=== PATIENT | female | born 1980 | race Two or more races ===

== ENCOUNTER → 2020-05-21 15:00 | Outpatient (CLI) | payer OTHER, SELFPAY ==
--- NOTE | ~2020-05-21 | MM_ITS ---
EXAMINATION: MM screening [facility] BI w kasi HISTORY: Screening mammogram TECHNIQUE: Craniocaudal and mediolateral oblique 3-D tomosynthesis images were obtained and synthetic 2-D images were generated. CAD analysis was submitted and interpreted. COMPARISON: 04/30/2019, 05/17/2017, 03/06/2015 BREAST PARENCHYMAL COMPOSITION: There are scattered areas of fibroglandular density. FINDINGS: RIGHT BREAST: There is a possible mass in the posterior third outer breast best appreciated 10 cm fro m the nipple on the craniocaudal view. LEFT BREAST: There is no evidence of suspicious mass, calcification, or architectural distortion to s uggest malignancy. There has been no significant interval change. IMPRESSION: 1. Possible right breast mass 2. Additional mammographic views and possible breast ultrasound are recommended. BI-RADS Category 0: Incomplete: Needs additional imaging evaluation. Reviewed, dictated and finalized at location A. ENT PLANT OPERATOR IMPRESSION: 1. Possible right breast mass 2. Additional mammographic views and possible breast ultrasound are recommended . BI-RADS Category 0: Incomplete: Needs additional imaging evaluation.
== END ==
PROVIDERS: PCP Family Medicine Sports Medicine; Visit Provider Nurse Practitioner
DX: Z12.31 Encounter for screening mammogram for malignant neoplasm of breast (principal); R92.8 Other abnormal and inconclusive findings on diagnostic imaging of breast
CPT/HCPCS: 77063; 77067

== ENCOUNTER → 2020-06-03 09:48 | Outpatient (CLI) | payer OTHER, SELFPAY ==
--- NOTE | ~2020-06-03 | MMUS_ITS ---
EXAMINATION: MM diagnostic mammo unilat RT, US breast RT limited HISTORY: Follow-up right breast asymmetry TECHNIQUE: Additional 3-D tomosynthesis images of the right breast were performed and synthetic 2-D i mages were generated. CAD analysis was submitted and interpreted. High resolution Limited right breas t ultrasound was performed. COMPARISON: Comparison to multiple prior studies sequentially, with oldest reviewed study dated 07/18. BREAST PARENCHYMAL COMPOSITION: Breast composed of scattered areas of fibroglandular density. FINDINGS: MAMMOGRAPHIC FINDINGS: There is persistent focal asymmetry in the upper outer quadrant of the right breast. There are no augie picious calcifications or architectural distortion. ULTRASOUND: Limited right breast ultrasound: At 11:00, 9 cm from the nipple there is a complex predominantly hypo echoic mass measuring 1.3 x 1.1 x 0.4 cm. There is mixed posterior attenuation. No internal vasculari ty. This corresponds to the area of abnormality on mammography. IMPRESSION: 1. Complex hypoechoic 1.3 cm right breast mass at 11:00, 9 cm from the nipple. 2. Ultrasound-guided right breast biopsy recommended. BI-RADS category 4, suspicious findings. Reviewed, dictated and finalized at location A. MAKER IMPRESSION: 1. Complex hypoechoic 1.3 cm right breast mass at 11:00, 9 cm from the nipple. 2. Ultrasound-guided right breast biopsy recommended. BI-RADS category 4, suspicious findings.
== END ==
PROVIDERS: PCP Family Medicine Sports Medicine; Visit Provider Obstetrics & Gynecology Gynecology
DX: R92.8 Other abnormal and inconclusive findings on diagnostic imaging of breast (principal)
CPT/HCPCS: 76642; 77065

== ENCOUNTER 2024-07-16 00:29 | Day surgery (SDC) | payer OTHER, SELFPAY ==
[2024-07-02 13:23] VITALS: BMI 28.0
--- OUTSIDE RECORDS SUMMARY | 2024-07-16 00:31 | XMS_ITS | Clinical Summary ---
Author Organization [facility] Address [address] [place] [address] Care Team Providers Care Grey Percher Name Role Phone Poonam Carrillo MD Unavailable [phone] Macario Lehman MD Primary Care Provider [phone] Allergies No known active allergies Medications ergocalciferol (DRISDOL) 8,000 unit/mL drops Take 1 tablet by mouth once a week Active cholecalciferol (VITAMIN D-3) 2000 unit tablet Take 2,000 Units by mouth daily Active ibuprofen (ADVIL,MOTRIN) 600 mg tablet Take 600 mg by mouth every 6 (six) hours as needed 05/27/2011 Active Tri-Sprintec, 28, 0.18/0.215/0.25 mg-35 mcg (28) per tablet Take 1 tablet by mouth daily 06/04/2020 Active Active Problems Problem Noted Date Diagnosed Date Mass of breast 07/20/2016 Family History Medical History Relation Name Comments Melanoma Father's Brother Relation Name Status Comments Father Other Tumore left kid marina, tumor on colon, age 55 Father's Brother Social History Tobacco Use Types Packs/Day Years Used Date Smoking Tobacco: Former Alcohol Use Standard Drinks/Week Comments Yes 0 (1 standard drink = 0.6 oz pur e alcohol) Personal Safety Answer Date Recorded Getting School Help Needed Not on file 07/21 Comments Unknown Sex and Gender Information Value Date Recorded Sex Assigned at Not on file Legal Sex Female 8:55 AM SUPERVISOR WORD PROCESSING Gender Identity Not on file Sexual Orientation Not on file Obstetrics History Para Term AB IAB SAB Ectopic Multiple Livin g Live Births 1 1 1 1 1 Date Outcome GA Total Labor Labor/2nd/3rd Weight Sex Type Anes PTL Katiana A1 A5 Name Clin 011 36w 6d 15h 30m/2h 30m/ 2.95 kg (6 lb 8.1 oz) M Vag-S pont Epidur al Y Livin g 7 8 KINSEY MONDRAGON1A KETTY Delivery Location:[facility] Last Filed Vital Signs Vital Sign Reading Time Taken Comments Blood Pressure - - Pulse - - Temperature - - Respiratory Rate - - Oxygen Saturation - - Inhaled Oxygen Concentration - - Weight 65.8 kg (145 lb) 06/24/2020 1:54 PM SUPERVISOR WORD PROCESSING Height 152.4 cm (5') 06/24/2020 1:54 PM SUPERVISOR WORD PROCESSING Body Mass Index 28.32 06/24/2020 1:54 PM SUPERVISOR WORD PROCESSING Plan of Treatment Health Maintenance Due Date Last Done Comments Cervical Cancer Screening 1979 Colon Cancer Screening-Colonoscopy 1979 Depression Screening 1979 Hepatitis C Screening 1979 DTaP/Tdap/Td Vaccine (1 - Tdap) 1990 Hepatitis B Screening 1997 Regular Well Visit/Exam 18-64 1997 Influenza Vaccine (#1) 2024 04/15/2020 Breast Cancer Screening-Mammogram 08/20/2024 08/21/2023, 08/12/2022, 06/02/2021 HPV Vaccines Aged Out No longer eligi ble based on patient's age to complete this topic Pneumococcal vaccine <65 Aged Out No longer eligible based on patient's age to complete this topic Procedures Procedure Name Priority Date/Time Associated Diagnosis Comments SCREENING MAMMOGRAM BILATERAL W MAXIMILIAN Schedule Routine, Read Routine (OP Routine) 08/21/2023 3:57 PM CDT Screening mammogram, encounter for from Last 3 Months or Most Recently Relevant to Health Maintenance Results * Screening Mammogram Bilateral W Maximilian (08/21/2023 3:57 PM CDT) Anatomical Region Laterality Modality Breast Bilateral Mammography Narrative 08/22/2023 10:49 AM CDT Mammogram Technique: Bilateral Digital Breast Tomosynthesis, Bilateral C-view 2D Screening mammogram. Views obtained: bilateral craniocaudal and bilateral mediolateral oblique. Computer Aided Detection was performed. Mammogram Findings: The present examination has been compared to prior imaging studies performed at [facility] on 06/02/2021 and 08/12/2022, and at [facility] on 05/21/2020. There are scattered areas of fibroglandular density. There is no suspicious abnormality in either breast. Impression: There is no mammographic evidence of malignancy. Annual screening mammography is recommended. OVERALL FINAL ASSESSMENT: BI-RADS CATEGORY 1: Negative. Procedure Note Veronika Mckinney MD - 08/22/2023 Mammogram Technique: Bilateral Digital Breast Tomosynthesis, Bilateral C-view 2D Screening mammogram. Views obtained: bilateral craniocaudal and bilateral mediolateral oblique. Computer Aided Detection was performed. Mammogram Findings: The present examination has been compared to prior imaging studies performed at [facility] on 06/02/2021 and 08/12/2022, and at [facility] on 05/21/2020. There are scattered areas of fibroglandular density. There is no suspicious abnormality in either breast. Impression: There is no mammographic evidence of malignancy. Annual screening mammography is recommended. OVERALL FINAL ASSESSMENT: BI-RADS CATEGORY 1: Negative. us Self Screening Mammogram IMG MAMMO PROCEDURES Fi nal Result from Last 3 Months or Most Recently Relevant to Health Maintenance Insurance [facility] CHOICE PLUS [id number] [employer] [id number] [facility] CHOICE PLUS Hayley GARZONLashawn KATE [address] CHOICE PLUS Care Teams Grey Percher Relationship Specialty Start Date End Date Macario Lehman MD [facility] [place] [address] PCP - General Family Medicine 07/21/23 Poonam Carrillo MD [address] [address] Referring Physician Gynecology 06/03/20
--- OUTSIDE RECORDS SUMMARY | 2024-07-16 00:31 | XMS_ITS | Patient Health Summary ---
Author Organization [facility] Address [address] [facility] [place] [address] Care Team Providers Care Online Editor Name Role Phone Macario Lehman MD Primary Care Provider Note from [facility],non-owned Affiliates and Associated Physician Practices is amultiple site organization consisting of ambulatory clinics and hospital sitesin [place], [place], [place] and [place]. This disclosure is being madepursuant to the Care Everywhere program and may not contain all information available regarding this patient. Last updated 18.[facility] Allergies No known active allergies Medications * Be aware that medications may not be up to date on this document. Alwaysverify current medications with the patient. * Norgestim-Eth Estrad Triphasic (TRI-SPRINTEC PO) * Probiotic Product (PROBIOTIC PO) * vitamin D, cholecalciferol, 2000 UNITS tablet Take 2,000 Units by mouth once daily * Loratadine (CLARITIN PO) Social History Tobacco Use Types Packs/Day Years Used Date Smoking Tobacco: Former Cigarettes Q uit: 2001 Smokeless Tobacco: Never Sex and Gender Information Value Date Recorded Sex Assigned at Not on file Gender Identity Not on file Sexual Orientation Not on file Last Filed Vital Signs Vital Sign Reading Time Taken Comments Blood Pressure 110/78 05/05/2019 10:37 AM DIRECTOR MEDICAL AFFAIRS Pulse 97 05/05/2019 10:37 AM DIRECTOR MEDICAL AFFAIRS Temperature 36.7 C (98.1 F) 05/05/2019 10:37 AM DIRECTOR MEDICAL AFFAIRS Respiratory Rate 16 05/05/2019 10:37 AM DIRECTOR MEDICAL AFFAIRS Oxygen Saturation 99% 05/05/2019 10:37 AM DIRECTOR MEDICAL AFFAIRS Inhaled Oxygen Concentration - - Weight 62.6 kg (138 lb) 05/05/2019 10:37 AM DIRECTOR MEDICAL AFFAIRS Height 152.4 cm (5') 05/05/2019 10:37 AM DIRECTOR MEDICAL AFFAIRS Body Mass Index 26.95 05/05/2019 10:37 AM DIRECTOR MEDICAL AFFAIRS Care Teams Online Editor Relationship Specialty Start Date End Date Macario Lehman MD [address] [place] [address] PCP - General Family Medicine 06/19/16
--- OUTSIDE RECORDS SUMMARY | 2024-07-16 00:31 | XMS_ITS | Referral Summary ---
Author Organization [facility] Address [address] [place] [address] Care Team Providers Care Business Risk Analyst Name Role Phone Poonam Carrillo MD Unavailable [phone] Macario Lehman MD Primary Care Provider [phone] Allergies No known active allergies Medications ergocalciferol [...] Date Diagnosed Date Mass of breast 07/20/2016 Social History Tobacco Use Types Packs/Day Years Used Date Smoking Tobacco: Former Alcohol Use Standard Drinks/Week Comments Yes 0 (1 standard drink = 0.6 oz pur e alcohol) Personal Safety Answer Date Recorded Getting School Help Needed Not on file 07/21 Comments Unknown Sex and Gender Information Value Date Recorded Sex Assigned at Not on file Legal Sex Female 8:55 AM CARAMEL MAKER Gender Identity Not on file Sexual Orientation Not on file Last Filed Vital Signs Vital Sign Reading Time Taken Comments Blood Pressure - - Pulse - - Temperature - - Respiratory Rate - - Oxygen Saturation - - Inhaled Oxygen Concentration - - Weight 65.8 kg (145 lb) 06/24/2020 1:54 PM CARAMEL MAKER Height 152.4 cm (5') 06/24/2020 1:54 PM CARAMEL MAKER Body Mass Index 28.32 06/24/2020 1:54 PM CARAMEL MAKER Plan of Treatment Not on file Procedures Procedure Name Priority Date/Time Associated Diagnosis Comments SCREENING MAMMOGRAM BILATERAL W ALEC Schedule Routine, Read Routine (OP Routine) 08/21/2023 3:57 PM CDT Screening mammogram, encounter for from Last 3 Months or Most Recently Relevant to Health Maintenance Results * Screening Mammogram Bilateral W Alec (08/21/2023 3:57 PM CDT) Anatomical Region Laterality Modality Breast Bilateral Mammography Narrative 08/22/2023 10:49 AM CDT Mammogram Technique: Bilateral Digital Breast Tomosynthesis, Bilateral C-view 2D Screening mammogram. Views obtained: bilateral craniocaudal and bilateral mediolateral oblique. Computer Aided Detection was performed. Mammogram Findings: The present examination has been compared to prior imaging studies performed at [facility] on 06/02/2021 and 08/12/2022, and at [facility] on 05/21/2020. There are scattered areas of [...] compared to prior imaging studies performed at [facility] on 06/02/2021 and 08/12/2022, and at [facility] on 05/21/2020. There are scattered areas of fibroglandular density. There is no suspicious abnormality in either breast. Impression: There is no mammographic evidence of malignancy. Annual screening mammography is recommended. OVERALL FINAL ASSESSMENT: BI-RADS CATEGORY 1: Negative. us Self Screening Mammogram IMG MAMMO PROCEDURES Fi nal Result from Last 3 Months or Most Recently Relevant to Health Maintenance Insurance Care Teams Business Risk Analyst Relationship Specialty Start Date End Date Macario Lehman MD [address] [place] [address] PCP - General Family Medicine 07/21/23 Poonam Carrillo MD [address] [facility] [address] [place] [address] Referring Physician Gynecology 06/03/20
--- OUTSIDE RECORDS SUMMARY | 2024-07-16 00:31 | XMS_ITS | Continuity of Care Document ---
Author Organization [facility] Address [address] [place] [address] Phone Care Team Providers Care City Clerk Name Role Phone Unavailable Unavailable Unavailable Advance Directives Directive Yes / No Effective Date File Name No Information Encounters Encounter Description Practice Location Reason(s) For Visit Diagnoses Date Provider Providers Copied on Encounter [facility], [address] [facility], [place], [place], [id number], [place] tel:[phone] [facility] OUTPATIENT No Information No Information Referring Provider: REFERRAL SELF. Family History Family Member Type Diagnosis Age At Onset No Information Payers Payer name Insurance type Covered republican ID Authorrafia meka(s) [facility] [id number] CI [id number] Social History Type Description Quantity Date Captured Comments Sex Female Smoking Status No Information Chief Complaint And Reason For Visit No Information History Of Present Illness Encounter Date Complaint History Of Prese nt Illness No Information Instructions Date Instruction Additional Infor mation No Information Assessments Type Assessment Date No Information
--- OUTSIDE RECORDS SUMMARY | 2024-07-16 00:31 | XMS_ITS | Referral Summary ---
Author Organization [facility] Address [address] [facility] [place] [address] Care Team Providers Care Commercial Instructor Supervisor Name Role Phone Macario Lehman MD Primary Care Provider [phone] Source Comments [facility],non-owned Affiliates and Associated Physician Practices is amultiple site organization consisting of ambulatory clinics and hospital sitesin [place], [place], [place] and [place]. This disclosure is being madepursuant to the Care Everywhere program and may not contain all information available regarding this patient. Last updated 18.[facility] Allergies No known active allergies Medications * Be aware that medications may not be up to date on this document. Alwaysverify current medications with the patient. Medication Sig Dispensed Refills Start Date End Date Status Norgestim-Eth Estrad Triphasic (TRI-SPRINTEC PO) Active Probiotic Product (PROBIOTIC PO) Active vitamin D, cholecalciferol, 2000 UNITS tablet Take 2,000 Units by mouth once daily Active Loratadine (CLARITIN PO) Active Social History Tobacco Use Types Packs/Day Years Used Date Smoking Tobacco: Former Cigarettes Q uit: 2001 Smokeless Tobacco: Never Sex and Gender Information Value Date Recorded Sex Assigned at Not on file Gender Identity Not on file Sexual Orientation Not on file Last Filed Vital Signs Vital Sign Reading Time Taken Comments Blood Pressure 110/78 05/05/2019 10:37 AM BUS AND TROLLEY INSPECTING DISPATCHER Pulse 97 05/05/2019 10:37 AM BUS AND TROLLEY INSPECTING DISPATCHER Temperature 36.7 C (98.1 F) 05/05/2019 10:37 AM BUS AND TROLLEY INSPECTING DISPATCHER Respiratory Rate 16 05/05/2019 10:37 AM BUS AND TROLLEY INSPECTING DISPATCHER Oxygen Saturation 99% 05/05/2019 10:37 AM BUS AND TROLLEY INSPECTING DISPATCHER Inhaled Oxygen Concentration - - Weight 62.6 kg (138 lb) 05/05/2019 10:37 AM BUS AND TROLLEY INSPECTING DISPATCHER Height 152.4 cm (5') 05/05/2019 10:37 AM BUS AND TROLLEY INSPECTING DISPATCHER Body Mass Index 26.95 05/05/2019 10:37 AM BUS AND TROLLEY INSPECTING DISPATCHER Plan of Treatment Not on file Care Teams Commercial Instructor Supervisor Relationship Specialty Start Date End Date Macario Lehman MD [address] [place] [address] PCP - General Family Medicine 06/19/16
--- OUTSIDE RECORDS SUMMARY | 2024-07-16 00:31 | XMS_ITS | Continuity of Care Document ---
Author Organization [facility] Address [address] [place] [address] Phone Care Team Providers Care Mill Crane Operator Name Role Phone Unavailable Unavailable Unavailable Advance Directives Directive Yes / No Effective Date File Name No Information Encounters Encounter Description Practice Location Reason(s) For Visit Diagnoses Date Provider Providers Copied on Encounter [facility], [address] [facility], [place], [place], [id number], tel:[phone] [facility] No Information 0 2 No Information Referring Provider: JOSE Harkins, [address], [place], [address]. tel:[phone] Family History Family Member Type Diagnosis Age At Onset No Information Payers Payer name Insurance type Covered democrat ID Authoriza tiyessenia(s) [facility] PPO [id number] CI [id number] Social History Type Description Quantity Date Captured Comments Sex Female Smoking Status No Information Chief Complaint And Reason For Visit No Information History Of Present Illness Encounter Date Complaint History Of Prese nt Illness No Information Instructions Date Instruction Additional Infor mation No Information Assessments Type Assessment Date No Information
--- OUTSIDE RECORDS SUMMARY | 2024-07-16 00:32 | XMS_ITS | Continuity of Care Document ---
Author Organization [facility] Address [address] [place] [address] [place] [address] Phone Care Team Providers Care Doughnut Glazier Name Role Phone Fernando Veronica Unavailable Unavailable Procedures Procedure Date Eye Exam Established Pt Advance Directives Directive Yes / No Effective Date File Name No Information Encounters Encounter Description Practice Location Reason(s) For Visit Diagnoses Date Provider Providers Copied on Encounter [facility], [address] [place] [address] [address], [place], [place], [id number], [place] tel:[phone] [facility] [place] [facility] No Information [phone] Hyunjulio cesar Fernando. [address] [facility] [address], [place], [address], [place]. tel:[phone] Family History Family Member Type Diagnosis Age At Onset No Information Payers Payer name Insurance type Covered democrat ID Authoriza tion(s) [facility] Commercial CI [id number] Social History Type Description Quantity Date Captured Comments Sex Female Smoking Status No Information Chief Complaint And Reason For Visit No Information Reason For Referral Reason For Referral No Information History Of Present Illness Encounter Date Complaint History Of Prese nt Illness No Information Functional Status Date Functional Assessmen t No Information Instructions Date Instruction Additional Infor mation No Information Assessments Type Assessment Date No Information Patient Care Teams Name Effective Dates (start - stop) Status Members No Information
--- OUTSIDE RECORDS SUMMARY | 2024-07-16 00:32 | XMS_ITS | Clinical Summary ---
Author Organization [facility] Address [address] [place] [address] Phone Care Team Providers Care Salvage Diver Name Role Phone Macario Lehman MD Primary Care Provider Allergies No known active allergies Medications VIT/FE FUMARATE/FA (ARIELLE ORAL) Take 1 Tab by mouth daily. Active ERGOCALCIFEROL, VITAMIN D2, (VITAMIN D ORAL) Take 1 Tab by mouth every 7 days. Active calcium carbonate (TUMS) 200 mg (500 mg) Oral Chew Take 500 mg by mouth 3 times daily with meals. Active oxyCODONE-aceta minophen (PERCOCET) 5-325 mg Oral tablet Take 1 Tab by mouth every 4 hours as needed for Pain, Moderate (For Pain Scale 4-6). 20 Tab 0 05/27/2011 Active ibuprofen (MOTRIN) 600 mg Oral tablet Take 1 Tab by mouth every 6 hours as needed for Pain. 40 Tab 0 05/27/2011 Active Active Problems No known active problems Resolved Problems Problem Noted Date Diagnosed Date Resolved Date SROM, cardiac anomalies, pit, GBS neg 05/25/2011 05/27/2011 05/2505/25/2011 05/27/2011 High-risk 02/25/2011 05/27/20 11 Family History Medical History Relation Name Comments Healthy Brother Diabetes Father Heart Disease Maternal Grandfather Hypertension Mother Healthy Sister Relation Name Status Comments Brother Father Alive Maternal Grandfather Mother Alive Sister Social History Tobacco Use Types Packs/Day Years Used Date Smoking Tobacco: Former Cigarettes Q uit: 06/24/2010 Smokeless Tobacco: Never Alcohol Use Standard Drinks/Week Comments No 0 (1 standard drink = 0.6 oz pur e alcohol) Comments Unknown Sex and Gender Information Value Date Recorded Sex Assigned at Not on file Legal Sex Female 6:04 AM FUEL CELL ENGINEER Gender Identity Not on file Sexual Orientation Not on file Occupation Industry Job Start Date Job End Date Not on file Not on file Not on file Not on file Last Filed Vital Signs Vital Sign Reading Time Taken Comments Blood Pressure 100/80 05/27/2011 3:00 PM FUEL CELL ENGINEER Pulse 100 05/27/2011 3:00 PM FUEL CELL ENGINEER Temperature 36.4 C (97.5 F) 05/27/2011 3:00 PM FUEL CELL ENGINEER Respiratory Rate 20 05/27/2011 3:00 PM FUEL CELL ENGINEER Oxygen Saturation 99% 05/27/2011 3:00 PM FUEL CELL ENGINEER Inhaled Oxygen Concentration - - Weight 68 kg (150 lb) 05/25/2011 9:54 AM FUEL CELL ENGINEER Height 152.4 cm (5') 05/25/2011 9:54 AM FUEL CELL ENGINEER Body Mass Index 29.29 05/25/2011 9:54 AM FUEL CELL ENGINEER Plan of Treatment Health Maintenance Due Date Last Done Comments DTAP/TDAP/TD VACCINES (1 - Tdap) 1998 HEPATITIS B VACCINES (1 of 3 - 19+ 3-dose series) 1998 CERVICAL CANCER SCREENING 2009 BREAST CANCER SCREENING 2019 INFLUENZA VACCINE (#1) 2024 COLORECTAL SCREENING 02/23/2024 Colorectal Cancer Screening 02/23/2024 FIT-DNA Q 3 years 02/23/2024 FIT/FOBT Q 1 year 02/23/2024 Flex Sig/CT Colonography Q 5 years 02/23/2024 HPV VACCINES Aged Out No longer eligi ble based on patient's age to complete this topic PNEUMOCOCCAL VACCINE 0-64 YEARS Aged Out No longer eligible based on patient's age to complete this topic Insurance Advance Directives For more information, please contact: [phone] * Full Code (Latest Code Status on File) Date Activated Date Inactivated Comments 05/26/2011 12:26 AM 05/27/2011 11:16 PM * Full Code Date Activated Date Inactivated Comments 05/25/2011 11:10 AM 05/26/2011 12:26 AM * Full Code Date Activated Date Inactivated Comments 05/25/2011 10:22 AM 05/25/2011 11:10 AM Care Teams Salvage Diver Relationship Specialty Start Date End Date Macario Lehman MD [address] [place] [address] PCP - General Family Practice 02/18/11
--- OUTSIDE RECORDS SUMMARY | 2024-07-16 00:32 | XMS_ITS | Clinical Summary ---
Author Organization [facility] Address [address] [place] [address] Care Team Providers Care Photographer Lithographic Name Role Phone Macario Lehman MD Primary Care Provider [phone] Source Comments [facility],non-owned Affiliates and Associated Physician Practices is amultiple site organization consisting of ambulatory clinics and hospital sitesin [place], [place], [place] and [place]. This disclosure is being madepursuant to the Care Everywhere program and may not contain all information available regarding this patient. Last updated 18.[facility] Allergies No known active allergies Medications * [...] Comments Blood Pressure 110/78 05/05/2019 10:37 AM BARBER INSTRUCTOR Pulse 97 05/05/2019 10:37 AM BARBER INSTRUCTOR Temperature 36.7 C (98.1 F) 05/05/2019 10:37 AM BARBER INSTRUCTOR Respiratory Rate 16 05/05/2019 10:37 AM BARBER INSTRUCTOR Oxygen Saturation 99% 05/05/2019 10:37 AM BARBER INSTRUCTOR Inhaled Oxygen Concentration - - Weight 62.6 kg (138 lb) 05/05/2019 10:37 AM BARBER INSTRUCTOR Height 152.4 cm (5') 05/05/2019 10:37 AM BARBER INSTRUCTOR Body Mass Index 26.95 05/05/2019 10:37 AM BARBER INSTRUCTOR Plan of Treatment Health Maintenance Due Date Last Done Comments COLOGUARD (AGES 45-75) - COL ON CA SCREENING 1979 COLON MONITORING 1979 COLONOSCOPY - COLON CA SCREENING 1979 CT COLONOGRAPHY - COLON CA SCREENING 1979 Colorectal Cancer Screening 1979 FIT - COLON CA SCREENING 1979 FLEX SIG - COLON CA SCREENING 1979 LIPID TESTING 1979 MAMMOGRAM 1979 PAP SMEAR 1979 HIV SCREENING 1994 HEPATITIS C SCREENING 02/17/1997 DTAP/TDAP/TD VACCINES (1 - Tdap) 1998 HEPATITIS B VACCINE (1 of 3 - 19+ 3-dose series) 1998 SCREENING FOR DIABETES 05/05/2019 COVID-19 VACCINE (1 - 2023-2 5 season) 2024 INFLUENZA VACCINE (#1) 2024 DEPRESSION SCREENING 06/05/2024 ZOSTER VACCINE (1 of 2) 2029 HIB VACCINE Aged Out No longer eligi ble based on patient's age to complete this topic HPV VACCINE Aged Out No longer eligi ble based on patient's age to complete this topic MENINGOCOCCAL (Group B) VACCINE Aged Out No longer eligible based on patient's age to complete this topic MENINGOCOCCAL VACCINE Aged Out No magnolia marquis eligible based on patient's age to complete this topic PNEUMOCOCCAL VACCINE Aged Out No long er eligible based on patient's age to complete this topic Care Teams Photographer Lithographic Relationship Specialty Start Date End Date Macario Lehman MD [facility] [place] [address] PCP - General Family Medicine 06/19/16
[2024-07-16 07:58] VITALS: BP 117/76; PULSE 82; RESP 18; TEMP 35.7; O2SAT 100
[2024-07-16 08:07] LABS: BEDSIDEPREGUCG Negative (Negative)
[2024-07-16] MEDS: LACTATED RINGERS 1,000 ML 150 ML IV CONT (08:11)
--- NOTE | 2024-07-16 08:42 | P.PNAN_ITS ---
Anes - Initial Pre Proc Eval Procedure: Operation Date: 07/16/24 09:00 Proposed Procedures p Screening Colonoscopy - Elmer Manuel MD Date/Time: 07/16/24 08:42 Surgeon: Elmer Manuel MD Pre Op Diagnosis: screening malignant neoplasm colon Patient Data Age: 44 Gender: F Height: 1.52 m Weight: 65.4 kg Last Vital Signs Temp 35.7 C L 07/16/24 07:58 Pulse 82 07/16/24 07:58 Resp 18 07/16/24 07:58 BP 117/76 07/16/24 07:58 Pulse Ox 100 07/16/24 07:58 O2 Del Method Room Air 07/16/24 07:58 Allergies Allergy/AdvReac Type Severity Reaction Status Date / Time No Known Allergies Allergy Verified 07/16/24 07:57 Home Medications ?Medication ?Instructions ?Recorded ?Confirmed ?Type norgestimate-ethinyl estradiol 1 tablet PO DAILY 07/02/24 07/16/24 History 0.18 mg/0.215mg/0.25mg-35 mcg(28)tablet (Tri-Sprintec (28)) Laboratory Tests 07/16/24 07:58 POC Urine HCG, Qual Negative (Negative) Patient hx anesthesia problems: none Family hx anesthesia problems: none Results Review: All pre-operative results and documents have been reviewed as part of the pre- operative evaluation. [facility] Social History Social History Smoking packs per day: 0.5 Smoking cigarettes per day: 10.0 Years smoked: 10 Smoking pack-years: 5.00 Smoking status: Former smoker Tobacco type: cigarettes Alcohol intake: current Drinks per week: 3 Spiritual care concerns: No Anes - Eval Final PreProcedure Day of Procedure 07/16/24 08:42 Patient weight: normal Heart: regular rate and rhythm Lungs: clear to auscultation Neurological: alert and oriented Last oral intake: >/= 8 hours ASA classification: II Emergent: no Anesthetic plan: proceed Anesthesia type and monitoring: general GIVS and standard monitoring Results Review: All pre-operative results and documents have been reviewed as part of the pre- operative evaluation. Informed Consent: The patient's anesthetic plan and its attendant risks and benefits were discussed with the patient/family/POA. Questions were solicited and answers provided to the satisfaction of the patient/family/POA.
--- NOTE | 2024-07-16 09:06 | P.HP_ITS ---
H&P: HPI History of Present Illness Date/Time: 07/16/24 09:06 Chief Complaint: Screening colonoscopy Narrative: This is the patient's first colonoscopy. There are no GI symptoms and there is no family history of colorectal cancer. Review of Systems Review of Systems: All systems reviewed & are unremarkable except as noted in HPI and below [facility] Social History Social History Smoking packs per day: 0.5 Smoking cigarettes per day: 10.0 Years smoked: 10 Smoking pack-years: 5.00 Smoking status: Former smoker Tobacco type: cigarettes Alcohol intake: current Drinks per week: 3 Spiritual care concerns: No Meds Home Medications and Allergies Home Medications ?Medication ?Instructions ?Recorded ?Confirmed ?Type norgestimate-ethinyl estradiol 1 tablet PO DAILY 07/02/24 07/16/24 History 0.18 mg/0.215mg/0.25mg-35 mcg(28)tablet (Tri-Sprintec (28)) Allergies Allergy/AdvReac Type Severity Reaction Status Date / Time No Known Allergies Allergy Verified 07/16/24 07:57 Vital Signs Vital Signs - 24 hr 07/16/24 07:58 Temperature 96.2 F L Pulse Rate 82 Respiratory Rate 18 Blood Pressure 117/76 Pulse Oximetry 100 Oxygen Delivery Room Air Exam Const: General: cooperative and healthy appearing Resp: Effort & Inspection: normal respiratory effort and able to speak in complete sentences Auscultation: clear to auscultation bilaterally Cardio: Rate: regular rate Rhythm: regular rhythm GI: Inspection: normal to inspection GI Palp: No No hepatosplenomegaly present Auscultation: normal bowel sounds Rectal Exam: deferred Skin: General skin exam: normal color Psych: Appearance: grossly normal Mental Status: mental status grossly normal Assessment and Plan Assessment and plan (1) Encounter for screening colonoscopy: Code(s): Z12.11 - Encounter for screening for malignant neoplasm of colon Status: Acute Assessment and Plan: The patient is deemed a good candidate for the procedure. Consent signed. Will proceed.
[2024-07-16 09:31] VITALS: BP 101/69; PULSE 81; RESP 14; O2SAT 100
[2024-07-16 09:41] VITALS: BP 125/90; PULSE 80; RESP 18; O2SAT 100
[2024-07-16 09:51] VITALS: BP 132/88; PULSE 82; RESP 15; O2SAT 100
== END 2024-07-16 09:58 | disposition home or self-care (01) ==
PROVIDERS: Nurse Anesthetist, Certified Registered; PCP Family Medicine; Referring Provider Nurse Practitioner; Visit Provider Internal Medicine Gastroenterology
PROC: 0DJD8ZZ Inspection of Lower Intestinal Tract, Via Natural or Artificial Opening Endoscopic (ICD-10-PCS; CPT 45378; principal; 2024-07-16 09:00)
DX: Z12.11 Encounter for screening for malignant neoplasm of colon (principal); Z87.891 Personal history of nicotine dependence
CPT/HCPCS: 45378; J2003; J2704; J7120